=== PATIENT | female | born 1950 | race Caucasian/White ===

== ENCOUNTER → 2018-07-19 09:11 | Outpatient (CLI) | payer MEDICARE, OTHER, SELFPAY ==
[2018-07-19 09:52] LABS: Add Manual Diff / Slide Review NO; Basophils Percent Auto 1.3 % (0-2); Eosinophils Percent Auto 5.2 % (2-4); Hematocrit 38.3 % (36-46); Lymphocytes Percent Auto 24.5 % (25-40); Mean Corpuscular HGB Conc 33.9 % (30-36); Mean Corpuscular Hemoglobin 31.1 PG (26-34); Mean Corpuscular Volume 91.8 fL (80-100); Monocytes Percent Auto 9.1 % (3-14); Neutrophils Absolute Auto 3100 /uL (3000-5900); Neutrophils Percent Auto 59.9 % (50-75); Platelet Count 109 X10^3/uL (150-400); Red Blood Cell Count 4.17 X10^6/uL (4.0-5.2); Red Cell Distribution Width 13.4 % (11.6-14.8); White Blood Cell Count 5.2 X10^3/uL (4.5-11.0)
[2018-07-19 10:11] LABS: Alanine Aminotransferase 29 IU/L (9-52); Albumin 4.7 g/dL (3.5-5.0); Albumin Globulin Ratio 1.5 (1.0-2.8); Alkaline Phosphatase 53 U/L (38-126); Aspartate Aminotransferase 30 IU/L (14-36); BUN Creatinine Ratio 27.5 (6-22); Bilirubin Total 0.5 mg/dL (0.2-1.3); Blood Urea Nitrogen 22 mg/dL (7-17); Calcium 10.6 mg/dL (8.4-10.2); Carbon Dioxide 30 mmol/L (22-32); Chloride 104 mmol/L (98-107); Estimated Glomerular Filt Rate > 60.0 mL/min (>60); Globulin 3.1 g/dL (1.7-4.1); Glucose 134 mg/dL (80-110); HEMOLYSIS < 15 (0-50); Potassium 4.9 mmol/L (3.4-5.1); Sodium 145 mmol/L (137-145); Total Protein 7.8 g/dL (6.3-8.2)
[2018-07-20 14:49] LABS: Alpha Fetoprotein 2.5 ng/mL (< 6.1)
== END ==
PROVIDERS: PCP Internal Medicine; Visit Provider Internal Medicine Gastroenterology
DX: Z86.19 Personal history of other infectious and parasitic diseases (principal)
CPT/HCPCS: 36415; 80053; 82105; 85025; 87522

== ENCOUNTER → 2020-06-15 09:54 | Outpatient (CLI) | payer MEDICARE, OTHER, SELFPAY ==
[2020-06-15 11:04] LABS: Hemoglobin A1C% w Est Avg Glu 6.5 % (4.0-6.0)
[2020-06-15 11:28] LABS: Alanine Aminotransferase 20 IU/L (<35); Albumin 4.7 g/dL (3.5-5.0); Albumin Globulin Ratio 1.7 (1.0-2.8); Alkaline Phosphatase 61 U/L (38-126); Aspartate Aminotransferase 28 IU/L (14-36); BUN Creatinine Ratio 26.7 (6-22); Bilirubin Total 0.6 mg/dL (0.2-1.3); Blood Urea Nitrogen 20 mg/dL (7-17); Calcium 11.1 mg/dL (8.4-10.2); Carbon Dioxide 27 mmol/L (22-32); Chloride 101 mmol/L (98-107); Cholesterol 149 mg/dL (140-199); Estimated Glomerular Filt Rate > 60.0 mL/min (>60); Globulin 2.8 g/dL (1.7-4.1); Glucose 109 mg/dL (80-110); HDL Cholesterol 70 mg/dL (40-60); HEMOLYSIS < 15 (0-50); LDL Cholesterol Calculated 59 mg/dL (<100); Potassium 4.8 mmol/L (3.4-5.1); Sodium 137 mmol/L (137-145); Total Protein 7.5 g/dL (6.3-8.2); Triglycerides 102 mg/dL (35-150)
[2020-06-15 11:57] LABS: TSH w/ Reflex to FT4 0.07 uIU/mL (0.47-4.68)
[2020-06-15 12:32] LABS: Free T4, Direct Thyroxine 1.17 ng/dL (0.78-2.19)
== END ==
PROVIDERS: PCP Internal Medicine; Referring Provider Internal Medicine; Visit Provider Internal Medicine
DX: E11.9 Type 2 diabetes mellitus without complications (principal); E03.9 Hypothyroidism, unspecified; I10 Essential (primary) hypertension
CPT/HCPCS: 36415; 80053; 80061; 83036; 84439; 84443

== ENCOUNTER → 2020-06-22 09:28 | Outpatient (CLI) | payer MEDICARE, OTHER, SELFPAY ==
[2020-06-27 15:17] LABS: Calcium 10.7 mg/dL (8.7-10.3)
== END ==
PROVIDERS: PCP Internal Medicine; Referring Provider Internal Medicine; Visit Provider Internal Medicine
DX: E83.52 Hypercalcemia (principal)
CPT/HCPCS: 36415; 82310; 82397; 83970

== ENCOUNTER → 2020-07-24 11:22 | Outpatient (CLI) | payer MEDICARE, OTHER, SELFPAY ==
[2020-07-25 07:56] LABS: Parathyroid Hormone Int 29 pg/mL (15-65)
== END ==
PROVIDERS: PCP Internal Medicine; Referring Provider Internal Medicine; Visit Provider Internal Medicine
DX: E83.52 Hypercalcemia (principal)
CPT/HCPCS: 83970

== ENCOUNTER → 2020-08-16 09:31 | Outpatient (CLI) | payer MEDICARE, OTHER, SELFPAY ==
[2020-08-16 10:31] LABS: BUN Creatinine Ratio 25.3 (6-22); Blood Urea Nitrogen 21 mg/dL (7-17); Calcium 10.3 mg/dL (8.4-10.2); Carbon Dioxide 29 mmol/L (22-32); Chloride 104 mmol/L (98-107); Estimated Glomerular Filt Rate > 60.0 mL/min (>60); Glucose 126 mg/dL (80-110); HEMOLYSIS < 15 (0-50); Magnesium 1.7 mg/dL (1.6-2.3); Potassium 4.6 mmol/L (3.4-5.1); Sodium 138 mmol/L (137-145)
[2020-08-20 13:09] LABS: Alpha-1 Globulin, Ur 4.1 % (.); Beta Globulin, Ur 20.8 % (.); Gamma Globulin, Ur 33.8 % (.); M-Spike % Comment: % (Not Observed); Urine Total Protein 4.3 mg/dL (Not Estab.)
[2020-08-20 19:06] LABS: Alpha-1-Globulin 0.1 g/dL (0.0-0.4); Alpha-2-Globulin 0.9 g/dL (0.4-1.0); Gamma Globulin 0.8 g/dL (0.4-1.8); Globulin Total 2.6 g/dL (2.2-3.9); Protein, Total 6.6 g/dL (6.0-8.5)
== END ==
PROVIDERS: PCP Internal Medicine; Referring Provider Internal Medicine; Visit Provider Internal Medicine
DX: E83.52 Hypercalcemia (principal)
CPT/HCPCS: 36415; 80048; 83735; 84100; 84155; 84156; 84165; 84166

== ENCOUNTER → 2020-09-21 09:44 | Outpatient (CLI) | payer MEDICARE, OTHER, SELFPAY ==
[2020-09-22 13:30] LABS: Ionized Calcium 5.6 mg/dL (4.5-5.6)
== END ==
PROVIDERS: PCP Internal Medicine; Referring Provider Internal Medicine; Visit Provider Internal Medicine
DX: E83.52 Hypercalcemia (principal)
CPT/HCPCS: 36415; 82330

== ENCOUNTER → 2020-09-24 10:27 | Outpatient (CLI) | payer MEDICARE, OTHER, SELFPAY ==
[2020-09-24 15:22] LABS: Calcium 24 Hour Urine 85 mg/day (100-300); Calcium Urine Random 4.4 mg/dL; Collection Time Urine 24 Hours; Total Volume Urine 1925 mL
== END ==
PROVIDERS: PCP Internal Medicine; Referring Provider Internal Medicine; Visit Provider Internal Medicine
DX: E83.52 Hypercalcemia (principal)
CPT/HCPCS: 82340

== ENCOUNTER → 2020-12-06 09:53 | Outpatient (CLI) | payer MEDICARE, OTHER, SELFPAY ==
[2020-12-06] MEDS: COVID-19 VACC #1, MRNA(MOD) 100 MCG/0.5 ML VIAL IM (10:00)
== END ==
PROVIDERS: PCP Internal Medicine; Visit Provider Internal Medicine
DX: Z23 Encounter for immunization (principal)
CPT/HCPCS: 0011A; 91301

== ENCOUNTER → 2021-01-03 09:45 | Outpatient (CLI) | payer MEDICARE, OTHER, SELFPAY ==
[2021-01-03] MEDS: COVID-19 VACC #2, MRNA(MOD) 100 MCG/0.5 ML VIAL IM (09:54)
== END ==
PROVIDERS: PCP Internal Medicine; Visit Provider Internal Medicine
DX: Z23 Encounter for immunization (principal)
CPT/HCPCS: 0012A; 91301

== ENCOUNTER → 2021-01-11 08:15 | Outpatient (CLI) | payer MEDICARE, OTHER, SELFPAY | PROVIDERS: PCP Internal Medicine; Referring Provider Internal Medicine; Visit Provider Internal Medicine | DX: E03.9 Hypothyroidism, unspecified (principal) | CPT/HCPCS: 36415; 84443 ==

== ENCOUNTER → 2021-03-15 13:11 | Outpatient (CLI) | payer MEDICARE, OTHER, SELFPAY ==
[2021-03-15 13:56] LABS: Add Manual Diff / Slide Review NO; Basophils Absolute Auto 100 /uL (0-100); Eosinophils Absolute Auto 300 /uL (0-450); Eosinophils Percent Auto 4.3 % (2-4); Hematocrit 37.3 % (36-46); Hemoglobin 12.5 g/dL (12.0-16.0); Lymphocytes Absolute Auto 1700 /uL (1100-4500); Lymphocytes Percent Auto 26.3 % (25-40); Mean Corpuscular HGB Conc 33.6 % (30-36); Mean Corpuscular Hemoglobin 30.8 PG (26-34); Mean Corpuscular Volume 91.5 fL (80-100); Monocytes Absolute Auto 400 /uL (0-900); Monocytes Percent Auto 5.9 % (3-14); Neutrophils Absolute Auto 4000 /uL (1500-7000); Neutrophils Percent Auto 62.5 % (50-75); Red Blood Cell Count 4.08 X10^6/uL (4.0-5.2); Red Cell Distribution Width 14.2 % (11.6-14.8); White Blood Cell Count 6.4 X10^3/uL (4.5-11.0)
[2021-03-15 14:18] LABS: Platelet Count 110 X10^3/uL (150-400)
== END ==
PROVIDERS: PCP Internal Medicine; Referring Provider Surgery; Visit Provider Surgery
DX: D69.6 Thrombocytopenia, unspecified (principal)
CPT/HCPCS: 36415; 85025

== ENCOUNTER → 2021-03-29 10:06 | Outpatient (CLI) | payer MEDICARE, OTHER, SELFPAY ==
[2021-03-29 11:19] LABS: COVID19 -Nasal RAPID Negative (Negative)
== END ==
PROVIDERS: PCP Internal Medicine; Visit Provider Surgery
DX: Z20.822 Contact with and (suspected) exposure to COVID-19 (principal)
CPT/HCPCS: 87635; C9803

== ENCOUNTER 2021-04-01 10:55 | Day surgery (SDC) | payer MEDICARE, OTHER, SELFPAY ==
[2021-03-29 09:58] VITALS: BMI 26.3
--- NOTE | 2021-04-01 | PATH_ITS ---
[facility] Accession Number: [id number] . 01 Material submitted: . thigh - LEFT POSTERIOR THIGH MASS . 01 Diagnosis: Left Posterior Thigh, Excision: Mature fibroadipose tissue, consistent with lipoma. MRV 04/04/2021 0944 Local . 01 Electronically signed: . Abdirizak Barroso MD, Dermatopathologist NPI- [id number] . 01 Gross description: . The specimen is received in formalin, labeled left posterior thigh mass and consists of multiple bach-yellow fragments of adipose tissue measuring 8.0 x 7.5 x 5.0 cm in aggregate. The largest fragment has an attached 5.3 x 2.0 cm bach skin. The margins are inked blue and the specimen is serially sectioned to reveal bach-yellow lobulated cut surfaces. Legal Compliance Officer sections are submitted in cassettes A1-A8. ([id number]) /MRV 04/02/2021 1352 Local . 01 Pathologist provided ICD-10: D17.9 . 01 CPT . 423031 Performed at: 01 [facility] [address] [place] [address], [place], [place] [id number] MD Naman Carlisle MD Phone: [phone]
[2021-04-01 11:19] VITALS: BMI 26.3
[2021-04-01 11:45] VITALS: BP 145/88; PULSE 73; RESP 16; TEMP 36.4; O2SAT 100
[2021-04-01] MEDS: LACTATED RINGERS 1,000 ML 100 ML IV (11:47)
--- NOTE | 2021-04-01 12:25 | PM.PREOP ---
Pre-operative Note COVID-19 COVID-19 status: Negative Result date/Date tested (Pos, Neg/Pending): 03/29/21 Interval Note History & Physical reviewed/Exam performed by Physician: Yes Changes to H&P: No
[2021-04-01 12:31] LABS: Add Manual Diff / Slide Review NO; Basophils Absolute Auto 100 /uL (0-100); Eosinophils Absolute Auto 300 /uL (0-450); Eosinophils Percent Auto 3.9 % (2-4); Hematocrit 40.4 % (36-46); Hemoglobin 13.7 g/dL (12.0-16.0); Lymphocytes Absolute Auto 2100 /uL (1100-4500); Lymphocytes Percent Auto 31.4 % (25-40); Mean Corpuscular HGB Conc 33.9 % (30-36); Mean Corpuscular Hemoglobin 31.2 PG (26-34); Mean Corpuscular Volume 91.9 fL (80-100); Monocytes Absolute Auto 500 /uL (0-900); Monocytes Percent Auto 8.2 % (3-14); Neutrophils Absolute Auto 3600 /uL (1500-7000); Neutrophils Percent Auto 55.5 % (50-75); Platelet Count 112 X10^3/uL (150-400); Red Blood Cell Count 4.39 X10^6/uL (4.0-5.2); Red Cell Distribution Width 13.7 % (11.6-14.8); White Blood Cell Count 6.5 X10^3/uL (4.5-11.0)
[2021-04-01] MEDS: CEFAZOLIN 1 GM VIAL 2 GM IV (13:07)
--- NOTE | 2021-04-01 13:21 | SUR.OPER ---
Left lateral on padded OR bed, head on pillow, gel axillary roll in place, bottom leg bent with gel pad under knee to foot, upper leg straight and supported with pillows. Upper arm supported by pillows and secured over bottom arm to padded arm board. Safety belt at hip, tape over blanket lower legs.
[2021-04-01] MEDS: BUPIVACAINE 0.5% W/ EPI (PF) 30 ML VIAL INJ (13:28)
[2021-04-01 14:08] VITALS: BP 127/80; PULSE 90; RESP 12; TEMP 36.3; O2SAT 99
--- NOTE | 2021-04-01 14:08 | P.OP_ITS ---
Operative Date/Time/Diagnoses Date of procedure: 04/01/21 Time of procedure: 14:08 Pre-op diagnosis: Left posterior thigh mass with skin involvement Post-op diagnosis: same Procedure & Clinicians Procedure: Excision of left posterior thigh mass Same procedure as scheduled: Yes Indications: Painful tender enlarging left posterior thigh mass, uncertain neoplastic potential Surgeon: Antonnia Thomas Click Yes if Unassisted: Yes Anesthesia Type: General Operative Notes Findings: Firm fatty septated mass distinct from normal subcutaneous tissue Closure Type: primary Specimen(s): other (Left posterior thigh mass) Estimated Blood Loss (mL): 2 Procedure in detail: The patient was brought into the OR. Sequential compression devices were placed on both legs and turned on. Appropriate perioperative antibiotics were given. General anesthesia was induced and the patient was intubated. The patient was turned to semi prone position on the OR table with the left leg extended and right leg flexed to expose the surgical site. All bony prominences were padded. The left upper thigh was prepped and draped in sterile fashion. Surgical timeout was conducted. 0.5% Marcaine with epi was used to infiltrate the skin overlying the mass. A vertical modified eliptical incision was made including the involved skin overlying the mass using a 15 blade. Dissection was carried down through the dermis and subcutaneous tissue until the fatty mass was encountered. The mass was dissected free circumferentially and passe off the table for pathology. Skin flaps were created in order to close the wound. Good hemostasis was achieved in the wound using cautery. The dermis was closed with interrupted 3-0 Vicryl suture, and subcuticular monocryl suture. The skin edges were sealed with dermabond. Once the dermabond dried, transversely oriented steri strips were placed to take tension off the wound. A stack of gauze was placed over the wound and secured with medipore tape. The patient was then transferred onto her hospital bed into supine position. She was then awakened from anesthesia and extubated. Needle, sponge, and instrument counts were correct x 2. An carolyn wrap was then placed on the left upper thigh to place slight compression on the wound. The patient was transf erred to the PACU in stable condition. Complications: none Post-operative Condition: stable Disposition: PACU
[2021-04-01 14:13] VITALS: BP 127/67; PULSE 77; RESP 12; O2SAT 99
[2021-04-01 14:18] VITALS: BP 135/65; PULSE 73; RESP 14; O2SAT 100
[2021-04-01] MEDS: OXYCODONE/ACETAMINOPHEN 5/325 TABLET 1 TAB PO (14:22)
[2021-04-01 14:23] VITALS: BP 122/77; PULSE 81; RESP 12; O2SAT 100
[2021-04-01 14:38] VITALS: BP 141/75; PULSE 80; RESP 20; TEMP 36.6; O2SAT 100
== END 2021-04-01 14:41 | disposition home or self-care (01) ==
PROVIDERS: PCP Internal Medicine; Referring Provider Surgery; Visit Provider Surgery
PROC: (CPT 27337; principal; 2021-04-01 12:15)
DX: D17.24 Benign lipomatous neoplasm of skin and subcutaneous tissue of left leg (principal); M79.652 Pain in left thigh; I10 Essential (primary) hypertension; E78.5 Hyperlipidemia, unspecified; E11.9 Type 2 diabetes mellitus without complications
CPT/HCPCS: 27337; 85025; J0690; J1100; J2250; J2405; J2704; J3010

== ENCOUNTER → 2021-08-08 15:36 | Outpatient (CLI) | payer MEDICARE, OTHER, SELFPAY ==
--- NOTE | 2021-08-08 | DI.MG.S_ITS ---
BILATERAL DIGITAL SCREENING MAMMOGRAM 3D/2D WITH CAD: 08/08/2021 CLINICAL: Routine screening. Comparison is made to exam dated: 01/30/2015 [facility]. The tissue of both breasts is predominantly fatty. Current study was also evaluated with a Computer Aided Detection (CAD) system. No significant masses, calcifications, or other findings are seen in either breast. There has been no significant interval change. IMPRESSION: NEGATIVE There is no mammographic evidence of malignancy. A 1 year screening mammogram is recommended. This exam was interpreted at Station ID: [id number]. NOTE: For mammograms, a report in lay terms will be sent to the patient. Approximately 15% of breast malignancies will not be visualized mammographically. In the management of a palpable breast mass, a negative mammogram must not discourage biopsy of a clinically suspicious lesion. Electronically Signed By: Joni Hurst acr/deb:08/08/2021 17:01:28 letter sent: Normal Exam ACR BI-RADS Category 1: Negative [id number]
== END ==
PROVIDERS: PCP Internal Medicine; Referring Provider Internal Medicine; Visit Provider Internal Medicine
DX: Z12.31 Encounter for screening mammogram for malignant neoplasm of breast (principal)
CPT/HCPCS: 77063; 77067

== ENCOUNTER → 2023-12-14 13:58 | Outpatient (CLI) | payer MEDICARE, OTHER, SELFPAY ==
--- NOTE | 2023-12-14 | DI.MG.S_ITS ---
BILATERAL DIGITAL SCREENING MAMMOGRAM 3D/2D WITH CAD: 12/14/2023 CLINICAL: Routine screening. Comparison is made to exams dated: 08/08/2021 mammogram and 01/30/2015 mammogram - [facility]. Both breasts are heterogeneously dense, which may obscure small masses (category c / 51-75% glandular tissue). Current study was also evaluated with a Computer Aided Detection (CAD) system. No significant masses, calcifications, or other findings are seen in either breast. There has been no significant interval change. IMPRESSION: NEGATIVE There is no mammographic evidence of malignancy. A 1 year screening mammogram is recommended. Based on the Tyrer Cuzick model (a risk assessment model) the patient's lifetime risk is 4.6% and her 10 year risk is 4.1%. According to the ACR, ACS, and NCCN guidelines, an annual breast MRI exam along with mammogram is recommended if the patient's lifetime risk is 20% or greater. This exam was interpreted at Station ID: [id number]. NOTE: For mammograms, a report in lay terms will be sent to the patient. Approximately 15% of breast malignancies will not be visualized mammographically. In the management of a palpable breast mass, a negative mammogram must not discourage biopsy of a clinically suspicious lesion. Electronically Signed By: Dennys aguirre/deb:12/15/2023 08:11:22 letter sent: Normal Exam ACR BI-RADS Category 1: Negative [id number]
== END ==
PROVIDERS: PCP Internal Medicine; Referring Provider Internal Medicine; Visit Provider Internal Medicine
DX: Z12.31 Encounter for screening mammogram for malignant neoplasm of breast (principal); R92.333 Mammographic heterogeneous density, bilateral breasts
CPT/HCPCS: 77063; 77067

== ENCOUNTER → 2025-08-21 09:35 | Outpatient (CLI) | payer MEDICARE, OTHER, SELFPAY ==
[2025-08-21 10:55] LABS: Hemoglobin A1C% w Est Avg Glu 6.7 % (4.0-6.0)
[2025-08-21 11:05] LABS: Alanine Aminotransferase 22 IU/L (<35); Albumin 4.6 g/dL (3.5-5.0); Albumin Globulin Ratio 1.6 (1.0-2.8); Alkaline Phosphatase 62 U/L (38-126); Blood Urea Nitrogen 25 mg/dL (7-17); Calcium 10.5 mg/dL (8.4-10.2); Carbon Dioxide 23 mmol/L (22-32); Chloride 106 mmol/L (98-107); Cholesterol 157 mg/dL (140-199); Estimated Glomerular Filt Rate > 60 mL/min (>60); Globulin 2.8 g/dL (1.7-4.1); Glucose 128 mg/dL (70-99); HDL Cholesterol 81 mg/dL (40-60); HEMOLYSIS < 15 (0-50); Potassium 4.7 mmol/L (3.4-5.1); Sodium 139 mmol/L (137-145); Total Protein 7.4 g/dL (6.3-8.2); Triglycerides 83 mg/dL (35-150)
[2025-08-21 11:38] LABS: Microalbumi Creatinin Ratio Ur 12.0 ug/mg CR (<30)
== END ==
PROVIDERS: PCP Internal Medicine; Referring Provider Internal Medicine; Visit Provider Internal Medicine
DX: E11.9 Type 2 diabetes mellitus without complications (principal); E78.5 Hyperlipidemia, unspecified
CPT/HCPCS: 36415; 80053; 80061; 82043; 82570; 83036